=== PATIENT | female | born 1945 | race Caucasian/White ===

== ENCOUNTER → 2016-12-07 | Outpatient (CLI) | payer MEDICARE | LOC: RT 12:59 | DX: I10 Essential (primary) hypertension (principal) ==

== ENCOUNTER → 2017-07-06 | Outpatient (CLI) | payer MEDICARE ==
--- NOTE | 2017-07-06 13:35 | RADIOLOGY REPORT PS360 ---
EXAM: LUMBAR SPINE 5 VIEWS HISTORY: LBP WITH LT SCIATICA ORDERING PHYSICIAN: CHANEL SEBASTIAN APRN PATIENT AGE: 72 years COMPARISON: 03/24/2016 FINDINGS: There is mild levoscoliosis of 14 degrees which is developed since the previous exam. There is normal alignment. There is mild multilevel degenerative disc disease from L1 S1 with small anterior osteophytes from L1 to S1. No fracture or dislocation. No lytic or blastic change. Mild facet arthritic changes are present at L5-S1 and L4-L5 Incidental vascular calcification. IMPRESSION: Lumbar spondylosis with degenerative disc disease and facet arthritic change and osteophyte formation similar to the previous exam Lumbar scoliosis convex left which has developed in the interval
== END ==
LOC: RAD 12:52
DX: M54.42 Lumbago with sciatica, left side (principal)

== ENCOUNTER → 2017-07-13 | Outpatient (CLI) | payer MEDICARE ==
--- NOTE | 2017-07-13 18:01 | RADIOLOGY REPORT PS360 ---
MRI-L-SPINE W/O, MRI-3D RENDERING/MYELOGRAM HISTORY: Mid low back pain with bilateral leg numbness and tingling LUMBAR DDD, SCOLIOSIS OF LUMBAR SPINE ORDERING PHYSICIAN: Mckinley Berman MD PATIENT AGE: 72 years COMPARISON: Radiograph of 07/06/2017 TECHNIQUE: Standard multiplanar multiecho sequences are performed without contrast. 3-D MIP and myelographic images are also rendered and reviewed FINDINGS: There is normal alignment. The spinal cord ends at the T12-L1 level. T12-L1: Mild degenerative disc disease with slight decrease in the disc space and endplate changes anteriorly L1-L2: Minimal bulging disc L2-L3: Minimal bulging disc with mild ligamentum flavum hypertrophy and mild bilateral lateral recess narrowing. There are endplate changes at L1 and L2. L3-L4: There is a small foraminal disc protrusion on the left causing mild left lateral recess and foraminal narrowing. The disc abuts the anterior aspect of the left L4 nerve root. L4-L5: Minimal concentric bulging disc with mild facet and ligamentum flavum hypertrophy with mild bilateral foraminal narrowing. L5-S1: Minimal left foraminal narrowing from facet hypertrophic change. No canal stenosis or extruded herniated disc. IMPRESSION: 1. Mild multilevel lumbar spondylosis as detailed at each level above. Please see above for detailed description. 2. Small left broad-based or abnormal disc protrusion at L3-L4 causing left lateral recess and foraminal narrowing and abutting the left L4 nerve root. 3. No extruded herniated disc or canal stenosis
== END ==
LOC: RAD 11:06
DX: M51.36 Other intervertebral disc degeneration, lumbar region (principal); M41.9 Scoliosis, unspecified